=== PATIENT | male | born 1945 | race Caucasian/White ===

== ENCOUNTER 2023-05-09 15:09 | Emergency (ER) | payer MEDICARE, OTHER, SELFPAY ==
[2023-05-09 15:20] VITALS: BP 163/72
[2023-05-09 15:38] LABS: % Basophils 0.7 % (0-2); % Eosinophils 2.5 % (0-6); % Immature Granulocytes 0.1 % (0-0.5); % Lymphocytes 20.6 % (20.5-51.1); % Monocytes 9.8 % (1.7-9.3); % Neutrophils 66.3 % (42.2-75.2); Absolute Basophils 0.1 10^3/uL (0-0.2); Absolute Eosinophils 0.2 10^3/uL (0-0.7); Absolute Lymphocytes 1.5 10^3/uL (1.2-3.4); Absolute Monocytes 0.7 10^3/uL (0.1-0.6); Absolute Neutrophils 4.7 10^3/uL (1.4-6.5); Hemoglobin 14.3 g/dL (13.0-18.0); Mean Corp Hgb Conc. 34.9 g/dL (33.0-37.0); Mean Corpuscular Hgb 32.1 pg (27.0-31.0); Mean Corpuscular Volume 91.9 fL (80.0-94.0); Mean Platelet Volume 9.7 fL (7.4-10.4); Nucleated Red Blood Cells % 0 % (-); Platelet Count 216 10^3/uL (130-400); Red Blood Cell Count 4.46 10^6/uL (4.70-6.10); Red Cell Dist. Width 12.9 % (11.5-14.5); White Blood Cell Count 7.1 10^3/uL (4.8-10.8)
[2023-05-09 15:56] LABS: ALT (SGPT) 49 U/L (0-50); AST (SGOT) 100 U/L (17-59); Albumin 4.2 g/dl (3.5-5.0); Alkaline Phosphatase 76 U/L (38-126); Blood Urea Nitrogen 20 mg/dl (9-20); Calcium 9.4 mg/dl (8.4-10.2); Carbon Dioxide 28 mmol/L (22-30); Chloride 104 mmol/L (98-107); Glucose 119 mg/dl (70-99); Potassium 4.8 mmol/L (3.5-5.1); Sodium 137 mmol/L (135-145); Total Bilirubin 1.1 mg/dl (0.2-1.3); Total Protein 7.3 g/dl (6.3-8.2); eGFR > 60.00
[2023-05-09 16:03] LABS: Troponin I < 0.012 ng/ml
[2023-05-09 16:49] VITALS: BP 160/85
[2023-05-09 17:00] VITALS: BP 155/70
--- NOTE | 2023-05-09 17:49 | ED.GENMED ---
History of Present Illness
General
Chief Complaint: Chest Pain
Time Seen by Provider: 05/09/23 17:46
Travel History
Have you had any contact with someone who has COVID-19?: No
Do you have any symptoms of coronavirus? Fever > 100 degrees, chills, cough, shortness of breath, sore throat, loss of taste or smell, muscle aches, or headache?: No
History of Present Illness
History of Present Illness:
HPI: Patient presents with chest pain and diaphoresis that started around 2:30 PM (3 hours ago). He uses 2 fingers and points to the lower middle chest wall near the xiphoid. He cannot qualify the pain but states that it was not a pressure or
heaviness. He thinks it was more of a aching/indigestion type of feeling. He has had this feeling in the past but this time he had 'cold sweats'. He has been on Prilosec in the past.
EXAM:
GENERAL: Well appearing in no distress
HEENT: Moist oral mucosa
CARDIOVASCULAR: Systolic murmur is noted to the upper sternal borders, normal heart rate and rhythm, No chest wall tenderness
PULMONARY: No respiratory distress, breath sounds are clear and equal
ABDOMEN: Soft with no peritoneal signs, no tenderness
NEUROLOGIC: Excellent strength all extremities, no coordination deficits
PSYCHIATRIC: Appropriate mental status, normal insight and judgement
EXTREMITIES: Nontender, no edema, moves all extremities equally
SKIN: No rash, no lesions
ED COURSE:
6:15 PM: I initially evaluated patient
NUMBER AND COMPLEXITY OF PROBLEMS ADDRESSED AT THE ENCOUNTER
� Chronic conditions affecting care: BPH, has had kidney stones, he says that he has had ulcer seen on endoscopy in the past
� Acute Exacerbation and/or Progression of Chronic Illness: This is an acute problem
� Differential Diagnosis includes: ACS, GERD/exacerbation of ulcer
AMOUNT AND/OR COMPLEXITY OF DATA TO BE REVIEWED AND ANALYZED
� I performed an independent evaluation of and my interpretation is:
EKG: Sinus 67, normal axis, some T wave inversion noted in the lateral leads specifically aVL which was not present in 2012
CT:
X-rays:
Laboratory Studies: CBC unremarkable, troponin less than 0.012, chemistries unremarkable other than mild AST elevation
Other:
� Review of other/old records: I reviewed EKG from 2012 that showed [address] abnormality
� Clinical information was obtained by an independent historian: None needed
� Prescriptions/Medications Considered but not given:
� Further testing considered but not performed:
RISK OF COMPLICATIONS AND/OR MORBIDITY OR MORTALITY OF PATIENT MANAGEMENT
� Social determinants of health affecting care: Lives at home
� Discussion with other providers: Notified Dr. Fonseca at 6:45 PM�recommends chest pain heart; I also notified GI front office to arrange close follow-up
� Escalation of care including admission/observation vs risk of discharge considered: The patient had 2 troponins and symptoms have spontaneously improved/resolved. I offered to give GERD type of medicines here however the
patient declines. On reassessment at 7:30 PM, the patient appears very comfortable. Recommended patient to take baby aspirin as well as Prilosec for 2 weeks.
Past History
Past History
ED Past Medical History: Other (BPH)
ED Past Surgical History: None
Social History
Tobacco: Non-smoker
Alcohol: Occasional
Personal: Single (Significant other)
Living: with family
Family History
Family History: Negative Diabetes, Hypertension, Early CAD, Asthma or Cancer
Phy Exam
Physical Exam
Physical Exam:
See HPI
Scores
Heart Score for Chest Pain Patients
STEMI patient?: Not applicable
Course
Orders/Labs/Results
Orders:
Orders
05/09/23 15:11
Electrocardiogram (*1) Urgent
Reason for Study: Chest Pain
EKG- Treatment ONCE
05/09/23 15:23
CR Chest - 2 Views Urgent
Comment:
Reason For Exam: chest pain
05/09/23 15:31
Complete Blood Count/With Diff Urgent
Comprehensive Metabolic Panel Urgent
PTT Urgent
Troponin I Urgent
05/09/23 15:32
EKG [Electrocardiogram (*1)] Urgent
Reason for Study: Chest Pain
Comment: repeat EKG per RN
EKG- Treatment ONCE
05/09/23 18:02
Troponin I Urgent
Abnormal Lab Results
05/09/23
15:31
RBC 4.46 L 10^6/uL
(4.70-6.10)
MCH 32.1 H pg
(27.0-31.0)
Absolute Monos (auto) 0.7 H 10^3/uL
(0.1-0.6)
Monocytes % 9.8 H %
(1.7-9.3)
Glucose 119 H mg/dl
(70-99)
AST 100 H U/L
(17-59)
05/09/23 15:31
05/09/23 15:31
Vital Signs
Initial and Last Documented VS:
Initial Vital Signs
Temp Pulse Resp BP Pulse Ox
98.3 F 65 20 163/72 99
05/09/23 15:20 05/09/23 15:20 05/09/23 15:20 05/09/23 15:20 05/09/23 15:20
Last Documented Vital Signs
Temp Pulse Resp BP Pulse Ox
98.3 F 74 18 167/77 98
05/09/23 15:20 05/09/23 19:19 05/09/23 19:19 05/09/23 19:19 05/09/23 19:19
*Critical Care Note
Total Time (30-74mins, 75-104mins- exclusive of procedures): Not Applicable
ED Attending Note
-
Portions of this chart may have been created with voice recognition software.� Occasional wrong word or��sound alike� substitutions may have occurred due to the inherent limitations of voice recognition software.
Discharge Plan
Departure
Patient Disposition: Home (Routine Discharge)
Date of Disposition: 05/09/23
Time of Disposition: 19:24
Patient with high blood pressure during this ER visit?: Yes
Discharge Problem:
Chest pain
Instructions: Chest Pain CBC Follow Up
Prescriptions:
No Action
finasteride 5 MG tablet
5 mg PO DAILY
Tansulosin
1 tab PO DAILY
tamsulosin 0.4 MG capsule
0.4 mg PO DAILY Qty: 5 0RF
ondansetron 4 MG tablet,disintegrating
4 mg PO Q8HPRN PRN (Reason: Nausea/Vomiting) Qty: 10 0RF
oxycodone-acetaminophen 5 MG/325 MG tablet
1 tab PO Q4HPRN PRN (Reason: Severe pain) Qty: 10 0RF
Referrals:
Arnoldo Fonseca MD [Active] - Follow up in 2-3 days
UNKNOWN - PT DOES,NOT KNOW [Unknown Provider] -
Activity Restrictions/Additional Instructions:
I did speak to Dr. Raymundo barrios, one of the cardiologists�their office should be contacting you for close follow-up. Return here if worse.
Interventions
Interventions:
*Risk Screen - Suicide Last Done: 05/09/23 15:20
*General Assessment Last Done: 05/09/23 15:20
*Neglect/Abuse Screening Last Done: 05/09/23 16:52
ED- Fall Risk Assessment Last Done: 05/09/23 18:39
*ED COVID-19 Vaccine History Last Done: 05/09/23 16:52
ED- Cardiac Assessment Last Done: 05/09/23 16:53
[2023-05-09 18:00] VITALS: BP 168/86
[2023-05-09 18:35] LABS: Troponin I < 0.012 ng/ml
[2023-05-09 19:19] VITALS: BP 167/77
== END 2023-05-09 19:37 | disposition home or self-care (01) ==
LOC: EMR 15:09
PROVIDERS: Emergency Medicine; EMERGENCY PHYSICIAN Emergency Medicine; FAMILY PHYSICIAN Family Medicine
DX: R07.89 Other chest pain (principal); R61 Generalized hyperhidrosis; Z82.49 Family history of ischemic heart disease and other diseases of the circulatory system
CPT/HCPCS: 99283; 71046; 80053; 84484; 85025; 85730; 93005

== ENCOUNTER → 2023-06-26 06:25 | Day surgery (SDC) | payer MEDICARE, OTHER, SELFPAY | LOC: GI 06:25 | PROVIDERS: ATTENDING PHYSICIAN Internal Medicine Gastroenterology | DX: Z12.11 Encounter for screening for malignant neoplasm of colon (principal); K57.30 Diverticulosis of large intestine without perforation or abscess without bleeding; K64.8 Other hemorrhoids; Z86.010 Personal history of colon polyps; R07.89 Other chest pain; K44.9 Diaphragmatic hernia without obstruction or gangrene; K31.89 Other diseases of stomach and duodenum; K29.50 Unspecified chronic gastritis without bleeding | CPT/HCPCS: 43239; G0105; 88305 ==

== ENCOUNTER → 2024-01-28 17:15 | Outpatient (REF) | payer MEDICARE, OTHER, SELFPAY | LOC: RCS 17:15 | PROVIDERS: ATTENDING PHYSICIAN Family Medicine | DX: I35.0 Nonrheumatic aortic (valve) stenosis (principal) | CPT/HCPCS: 93306 ==

== ENCOUNTER → 2025-01-05 07:06 | Outpatient (REF) | payer MEDICARE, OTHER, SELFPAY | LOC: RCS 07:06 | PROVIDERS: ATTENDING PHYSICIAN Internal Medicine Cardiovascular Disease; FAMILY PHYSICIAN Family Medicine | DX: R07.9 Chest pain, unspecified (principal) | CPT/HCPCS: 93306 ==

== ENCOUNTER → 2025-02-08 10:11 | Outpatient (REF) | payer MEDICARE, OTHER, SELFPAY | LOC: REG 10:11 | PROVIDERS: ATTENDING PHYSICIAN Family Medicine | DX: M25.512 Pain in left shoulder (principal) | CPT/HCPCS: 73030 ==